=== PATIENT | female | born 1955 | race Caucasian/White ===

== ENCOUNTER → 2022-03-20 10:59 | Outpatient (BNVA) | payer BC, SELFPAY | PROVIDERS: Family Provider Family Medicine; PCP Obstetrics & Gynecology; Visit Provider Internal Medicine Rheumatology | DX: Z79.899 Other long term (current) drug therapy (principal); M19.90 Unspecified osteoarthritis, unspecified site; R76.8 Other specified abnormal immunological findings in serum | CPT/HCPCS: 36415; 73130; 73562; 73630; 80076; 82565; 85025; 86160; 86162; 86235; 86255; 86376 ==